=== PATIENT | male | born 1935 | race Hispanic/Latino ===

== ENCOUNTER 2017-05-19 20:24 | Inpatient (IN) | payer MEDICARE ==
[2017-05-19 22:40] LABS: BUN/Creatinine Ratio 17.77; Calcium 9.2 mg/dL (8.4-10.2); Chloride 98.4 mmol/L (98-107); Potassium 5.4 mmol/L (3.6-5.0)
[2017-05-19 22:56] LABS: Basophils % (Auto) 0.4 % (0.0-1.8); Hematocrit 42.9 % (35.5-45.6); Hemoglobin 14.1 gm/dl (11.8-15.2); Mean Corpuscular HGB Conc 33 % (32-34); Mean Corpuscular Hemoglobin 32 pg (28-32); Mean Corpuscular Volume 96 fl (84-94); Platelet Count 190 K/mm3 (140-440); Red Blood Count 4.45 M/mm3 (3.65-5.03); White Blood Count 9.3 K/mm3 (4.5-11.0)
[2017-05-19] MEDS ORDERED: KIONEX PO ONE (23:06)
[2017-05-19] MEDS ORDERED: NACL 0.9% 1000 ML 1,000 ML IV ONE (23:06)
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
[2017-05-20] MEDS ORDERED: TYLENOL PO PRN (01:24)
[2017-05-20] MEDS ORDERED: ZOFRAN IV PRN (01:25)
[2017-05-20] MEDS ORDERED: NACL 0.9% 1000 ML 1,000 ML IV SCH (02:00)
--- NOTE | 2017-05-20 02:22 | Admit Criteria Form ---
Admission Criteria Documentation: PSYCHIATRIC DISORDERS Clinical Indications for Inpatient Care (Place 'X' for any and all applicable criteria): Ongoing inpatient care may be needed for 1 or more of the following(1)(2)(3)(4)( 6)(7)(8): [ X]I. Danger to self or others not manageable at lower level of care. [ ]II. Grave disability (eg, inability to perform self care necessary at lower level of care) [ ]III. Agitation or inappropriate behavior interfering with care for primary condition (eg, attempting to discontinue lines or drains prematurely, unable to cooperate with respiratory care) [ ]IV. Severe disability or disorder indicated by ALL of the following: [ ]a) Severe behavioral health disorder-related symptoms or condition indicated by 1 or more of the following: [ ]i) Severe problem with cognition, memory, judgment, or impulse control [ ]ii) Severe clinical manifestations (eg, hallucinations, delusions, other acute psychotic symptoms, masood, extreme agitation or anxiety) [ ]b) Patient management at lower level of care is not feasible until acute intervention or modification is initiated. Extended stay beyond goal length of stay for the primary condition may be needed until ALLof the following are present(1)(2)(3)(4)7)19)(23): [ ]a) Danger to self or others is absent or manageable at lower level of care [ ]b) Behavior crisis management, including physical or chemical restraints, is required and is not available at a lower level of care. [ ]c) Behavioral symptoms (e.g., agitation, somnolence, inappropriate behavior) are present, and are not manageable at a lower level of care. [ ]d) Patient cannot understand follow-up treatment and crisis plan. [ ]e) Provider and supports are sufficiently available at lower level of care. [ ]f) Patient can participate (e.g., verify absence of plan for harm) and is in needed of monitoring. The original [facility] [employer] content created by [facility] has been revised. The portions of the content which have been revised are identified through the use of italic text or in bold, and [facility] has neither reviewed nor approved the modified material. All other unmodified content is copyright [facility] [employer]. Please see references footnoted in the original [facility] edition 2017 Admission Criteria Met: Yes
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
[2017-05-20 02:58] LABS: Urine Drugs of Abuse Note Disclamer
[2017-05-20 03:15] LABS: Bilirubin,Urine NEG (Negative); Blood,Urine NEG (Negative); Ketones,Urine NEG (Negative); Leukocyte Esterase,Urine TR (Negative); Mucus,Urine FEW /HPF; Nitrite,Urine NEG (Negative)
[2017-05-20 08:42] LABS: BUN/Creatinine Ratio 20.66; Calcium 8.3 mg/dL (8.4-10.2); Chloride 101.5 mmol/L (98-107); Potassium 4.5 mmol/L (3.6-5.0)
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
[2017-05-20] MEDS: HEPARIN SUB-Q SCH ×2 (09:31→21:52)
[2017-05-20] MEDS: NORVASC PO SCH (11:56)
[2017-05-20] MEDS ORDERED: PNEUMOVAX 23 IM ONE (12:00)
[2017-05-20] MEDS: HALDOL IM PRN ×2 (12:08→21:52)
--- NOTE | 2017-05-20 12:57 | Progress Note ---
Assessment and Plan Assessment and plan: Alzheimer's dementia with behavioral disturbances. Continue when necessary Haldol. Continue restraints as needed. Psychiatric consultation pending. Acute renal failure. Improved Etiology secondary to acute kidney injury likely related to vasomotor nephropathy/prerenal azotemia. Nephrology following. Follow BMP. Follow-up renal ultrasound and urine electrolytes. Follow-up SPEP and avoid potential nephrotoxins. Hypertension. Resume antihypertensives medications. Hyperkalemia. Resolved. Encephalopathy. As above. History Interval history: Patient is confused and combative. Hospitalist Physical - Constitutional Vitals: Temp Pulse Resp BP Pulse Ox 98.4 F 63 18 152/91 97 05/20/17 08:00 05/20/17 08:00 05/20/17 08:00 05/20/17 08:00 05/20/17 04:00 General appearance: Present: mild distress - EENT Eyes: Present: PERRL, EOM intact ENT: hearing intact, clear oral mucosa, dentition normal - Neck Neck: Present: supple, normal ROM - Respiratory Respiratory effort: normal Respiratory: bilateral: CTA - Cardiovascular Rhythm: regular Heart Sounds: Present: S1 & S2. Absent: gallop, rub - Extremities Extremities: no ischemia, No edema, Full ROM - Abdominal General gastrointestinal: soft, non-tender, non-distended, normal bowel sounds - Integumentary Integumentary: Present: clear, warm, dry - Neurologic Neurologic: CNII-XII intact, moves all extremities Results - Labs CBC & Chem 7: 05/19/17 22:02 05/20/17 07:30 Labs: Laboratory Last Values WBC 9.3 K/mm3 (4.5-11.0) 05/19/17 22:02 RBC 4.45 M/mm3 (3.65-5.03) 05/19/17 22:02 Hgb 14.1 gm/dl (11.8-15.2) 05/19/17 22:02 Hct 42.9 % (35.5-45.6) 05/19/17 22:02 MCV 96 fl (84-94) H 05/19/17 22:02 MCH 32 pg (28-32) 05/19/17 22:02 MCHC 33 % (32-34) 05/19/17 22:02 RDW 14.0 % (13.2-15.2) 05/19/17 22:02 Plt Count 190 K/mm3 (140-440) 05/19/17 22:02 Lymph % (Auto) 14.3 % (13.4-35.0) 05/19/17 22:02 [place] % (Auto) 12.8 % (0.0-7.3) H 05/19/17 22:02 Eos % (Auto) 0.0 % (0.0-4.3) 05/19/17 22:02 Baso % (Auto) 0.4 % (0.0-1.8) 05/19/17 22:02 Lymph # 1.3 K/mm3 (1.2-5.4) 05/19/17 22:02 [place] # 1.2 K/mm3 (0.0-0.8) H 05/19/17 22:02 Eos # 0.0 K/mm3 (0.0-0.4) 05/19/17 22:02 Baso # 0.0 K/mm3 (0.0-0.1) 05/19/17 22:02 Seg Neutrophils % 72.5 % (40.0-70.0) H 05/19/17 22:02 Seg Neutrophils # 6.7 K/mm3 (1.8-7.7) 05/19/17 22:02 Sodium 140 mmol/L (137-145) 05/20/17 07:30 Potassium 4.5 mmol/L (3.6-5.0) 05/20/17 07:30 Chloride 101.5 mmol/L (98-107) 05/20/17 07:30 Carbon Dioxide 26 mmol/L (22-30) 05/20/17 07:30 Anion Gap 17 mmol/L 05/20/17 07:30 BUN 31 mg/dL (9-20) H 05/20/17 07:30 Creatinine 1.5 mg/dL (0.8-1.5) 05/20/17 07:30 Estimated GFR 45 ml/min 05/20/17 07:30 BUN/Creatinine Ratio 20.66 % 05/20/17 07:30 Glucose 96 mg/dL (75-100) 05/20/17 07:30 Calcium 8.3 mg/dL (8.4-10.2) L 05/20/17 07:30 Urine Color Yellow (Yellow) 05/20/17 02:45 Urine Turbidity Clear (Clear) 05/20/17 02:45 Urine pH 6.0 (5.0-7.0) 05/20/17 02:45 Ur Specific [place] 1.012 (1.003-1.030) 05/20/17 02:45 Urine Protein 30 mg/dl mg/dL (Negative) 05/20/17 02:45 Urine Glucose (UA) Neg mg/dL (Negative) 05/20/17 02:45 Urine Ketones Neg mg/dL (Negative) 05/20/17 02:45 Urine Blood Neg (Negative) 05/20/17 02:45 Urine Nitrite Neg (Negative) 05/20/17 02:45 Urine Bilirubin Neg (Negative) 05/20/17 02:45 Urine Urobilinogen 2.0 mg/dL (<2.0) 05/20/17 02:45 Ur Leukocyte Esterase Tr (Negative) 05/20/17 02:45 Urine WBC (Auto) 7.0 /HPF (0.0-6.0) H 05/20/17 02:45 Urine RBC (Auto) 1.0 /HPF (0.0-6.0) 05/20/17 02:45 U Epithel Cells (Auto) < 1.0 /HPF (0-13.0) 05/20/17 02:45 Urine Mucus Few /HPF 05/20/17 02:45 Urine Opiates Screen Presumptive negative 05/20/17 02:45 Urine Methadone Screen Presumptive negative 05/20/17 02:45 Ur Barbiturates Screen Presumptive negative 05/20/17 02:45 Valproic Acid 52.7 ug/mL (50-100) 05/19/17 22:02 Ur Phencyclidine Scrn Presumptive negative 05/20/17 02:45 Ur Amphetamines Screen Presumptive negative 05/20/17 02:45 U Benzodiazepines Scrn Presumptive negative 05/20/17 02:45 Urine Cocaine Screen Presumptive negative 05/20/17 02:45 U Marijuana (THC) Screen Presumptive negative 05/20/17 02:45 Drugs of Abuse Note Disclamer 05/20/17 02:45 Plasma/Serum Alcohol < 0.01 gm% (0-0.07) 05/19/17 22:02
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
[2017-05-20] MEDS ORDERED: GEODON IM PRN (18:51)
[2017-05-20 20:16] LABS: Alanine Aminotransferase 19 units/L (7-56); Albumin 3.2 g/dL (3.9-5); Alkaline Phosphatase 71 units/L (35-129); Total Protein 6.4 g/dL (6.3-8.2)
[2017-05-20 21:19] LABS: Bilirubin,Direct < 0.2 mg/dL (0-0.2); Bilirubin,Indirect 0.1 mg/dL
[2017-05-21] MEDS: HALDOL IM PRN ×2 (01:33→18:30)
[2017-05-21] MEDS ORDERED: CATAPRES PO ONE (05:40)
[2017-05-21 05:59] LABS: Anion Gap 18 mmol/L; Blood Urea Nitrogen 24 mg/dL (9-20); Calcium 8.5 mg/dL (8.4-10.2); Carbon Dioxide 24 mmol/L (22-30); Chloride 100.4 mmol/L (98-107); Glucose 115 mg/dL (75-100); Sodium 138 mmol/L (137-145)
[2017-05-21] MEDS: NORVASC PO SCH (10:23)
[2017-05-21] MEDS: HEPARIN SUB-Q SCH ×2 (10:26→21:49)
--- NOTE | 2017-05-21 11:18 | Progress Note ---
Assessment and Plan Assessment and plan: Alzheimer's dementia with behavioral disturbances. Continue when necessary Haldol. Continue restraints as needed. Psychiatric consultation pending. Acute renal failure. Improved Etiology secondary to acute kidney injury likely related to vasomotor nephropathy/prerenal azotemia. Nephrology following. Follow BMP. Follow-up renal ultrasound and urine electrolytes. Follow-up SPEP and avoid potential nephrotoxins. Hypertension. Resume antihypertensives medications. Hyperkalemia. Resolved. Encephalopathy. As above. Disposition. Patient is medically stable for discharge to geriatric psych facility when bed is available. History Interval history: Patient is confused and combative. Hospitalist Physical - Constitutional Vitals: Temp Pulse Resp BP Pulse Ox 97.4 F L 0 L 18 0/0 96 05/21/17 05:33 05/21/17 05:33 05/21/17 05:33 05/21/17 05:33 05/21/17 05:33 General appearance: Present: no acute distress - EENT Eyes: Present: PERRL, EOM intact ENT: hearing intact, clear oral mucosa, dentition normal - Neck Neck: Present: supple, normal ROM - Respiratory Respiratory effort: normal Respiratory: bilateral: CTA - Cardiovascular Rhythm: regular Heart Sounds: Present: S1 & S2. Absent: gallop, rub - Extremities Extremities: no ischemia, No edema, Full ROM - Abdominal General gastrointestinal: soft, non-tender, non-distended, normal bowel sounds - Integumentary Integumentary: Present: clear, warm, dry - Neurologic Neurologic: CNII-XII intact, moves all extremities Results - Labs CBC & Chem 7: 05/19/17 22:02 05/21/17 04:31 Labs: Laboratory Last Values WBC 9.3 K/mm3 (4.5-11.0) 05/19/17 22:02 RBC 4.45 M/mm3 (3.65-5.03) 05/19/17 22:02 Hgb 14.1 gm/dl (11.8-15.2) 05/19/17 22:02 Hct 42.9 % (35.5-45.6) 05/19/17 22:02 MCV 96 fl (84-94) H 05/19/17 22:02 MCH 32 pg (28-32) 05/19/17 22:02 MCHC 33 % (32-34) 05/19/17 22:02 RDW 14.0 % (13.2-15.2) 05/19/17 22:02 Plt Count 190 K/mm3 (140-440) 05/19/17 22:02 Lymph % (Auto) 14.3 % (13.4-35.0) 05/19/17 22:02 [place] % (Auto) 12.8 % (0.0-7.3) H 05/19/17 22:02 Eos % (Auto) 0.0 % (0.0-4.3) 05/19/17 22:02 Baso % (Auto) 0.4 % (0.0-1.8) 05/19/17 22:02 Lymph # 1.3 K/mm3 (1.2-5.4) 05/19/17 22:02 [place] # 1.2 K/mm3 (0.0-0.8) H 05/19/17 22:02 Eos # 0.0 K/mm3 (0.0-0.4) 05/19/17 22:02 Baso # 0.0 K/mm3 (0.0-0.1) 05/19/17 22:02 Seg Neutrophils % 72.5 % (40.0-70.0) H 05/19/17 22:02 Seg Neutrophils # 6.7 K/mm3 (1.8-7.7) 05/19/17 22:02 Sodium 138 mmol/L (137-145) 05/21/17 04:31 Potassium 4.0 mmol/L (3.6-5.0) 05/21/17 04:31 Chloride 100.4 mmol/L (98-107) 05/21/17 04:31 Carbon Dioxide 24 mmol/L (22-30) 05/21/17 04:31 Anion Gap 18 mmol/L 05/21/17 04:31 BUN 24 mg/dL (9-20) H 05/21/17 04:31 Creatinine 1.0 mg/dL (0.8-1.5) 05/21/17 04:31 Estimated GFR > 60 ml/min 05/21/17 04:31 BUN/Creatinine Ratio 24.00 % 05/21/17 04:31 Glucose 115 mg/dL (75-100) H 05/21/17 04:31 Calcium 8.5 mg/dL (8.4-10.2) 05/21/17 04:31 Total Bilirubin 0.30 mg/dL (0.1-1.2) 05/20/17 13:52 Direct Bilirubin < 0.2 mg/dL (0-0.2) 05/20/17 13:52 Indirect Bilirubin 0.1 mg/dL 05/20/17 13:52 AST 35 units/L (5-40) 05/20/17 13:52 ALT 19 units/L (7-56) 05/20/17 13:52 Alkaline Phosphatase 71 units/L (35-129) 05/20/17 13:52 Total Protein 6.4 g/dL (6.3-8.2) 05/20/17 13:52 Albumin 3.2 g/dL (3.9-5) L 05/20/17 13:52 Albumin/Globulin Ratio 1.0 % 05/20/17 13:52 Urine Color Yellow (Yellow) 05/20/17 02:45 Urine Turbidity Clear (Clear) 05/20/17 02:45 Urine pH 6.0 (5.0-7.0) 05/20/17 02:45 Ur Specific [place] 1.012 (1.003-1.030) 05/20/17 02:45 Urine Protein 30 mg/dl mg/dL (Negative) 05/20/17 02:45 Urine Glucose (UA) Neg mg/dL (Negative) 05/20/17 02:45 Urine Ketones Neg mg/dL (Negative) 05/20/17 02:45 Urine Blood Neg (Negative) 05/20/17 02:45 Urine Nitrite Neg (Negative) 05/20/17 02:45 Urine Bilirubin Neg (Negative) 05/20/17 02:45 Urine Urobilinogen 2.0 mg/dL (<2.0) 05/20/17 02:45 Ur Leukocyte Esterase Tr (Negative) 05/20/17 02:45 Urine WBC (Auto) 7.0 /HPF (0.0-6.0) H 05/20/17 02:45 Urine RBC (Auto) 1.0 /HPF (0.0-6.0) 05/20/17 02:45 U Epithel Cells (Auto) < 1.0 /HPF (0-13.0) 05/20/17 02:45 Urine Mucus Few /HPF 07/12/17 02:45 Urine Opiates Screen Presumptive negative 05/20/17 02:45 Urine Methadone Screen Presumptive negative 05/20/17 02:45 Ur Barbiturates Screen Presumptive negative 05/20/17 02:45 Valproic Acid 52.7 ug/mL (50-100) 05/19/17 22:02 Ur Phencyclidine Scrn Presumptive negative 05/20/17 02:45 Ur Amphetamines Screen Presumptive negative 05/20/17 02:45 U Benzodiazepines Scrn Presumptive negative 05/20/17 02:45 Urine Cocaine Screen Presumptive negative 05/20/17 02:45 U Marijuana (THC) Screen Presumptive negative 05/20/17 02:45 Drugs of Abuse Note Disclamer 05/20/17 02:45 Plasma/Serum Alcohol < 0.01 gm% (0-0.07) 05/19/17 22:02 Hepatitis A IgM Ab Non-reactive (NonReactive) 05/20/17 13:52 Hep Bs Antigen Non-reactive (Negative) 05/20/17 13:52 Hep B Core IgM Ab Non-reactive (NonReactive) 05/20/17 13:52 Hepatitis C Antibody Non-reactive (NonReactive) 05/20/17 13:52
[2017-05-21] MEDS ORDERED: GEODON IM PRN (11:23)
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
--- NOTE | 2017-05-21 13:19 | Progress Note ---
Assessment and Plan Impression: * Acute kidney injury - likely related to prerenal azotemia * Dementia * Hypertension * Proteinuria * uti Plan: * Renal function has improved, cr is normal today * on low dose Amlodipine * po abx for uti * Avoid potential nephrotoxins * Needs psych and neuro evaluation * Encourage po hydration; gentle IVF * will sign off Subjective Date of service: 05/21/17 Principal diagnosis: adela Interval history: resting in bed, no acute events Objective - Exam Narrative Exam: General appearance: well-developed, well-nourished, other (NAD; awake; alert; nonverbal) EENT: ATNC Respiratory: Clear to Ascultation Heart: regular, S1S2 Gastrointestinal: Present: normal. Absent: tenderness, distended Integumentary: no rash Neurologic: other (alert) Musculoskeletal: Present: other (no edema) Psychiatric: cooperative F - Vital Signs Vital signs: Vital Signs - 12hr 05/21/17 05/21/17 05:33 10:00 Temperature 97.4 F L Pulse Rate [ 83 Left Radial] Pulse Rate [ 0 L Right] Respiratory 18 Rate Blood Pressure 190/122 [Left Radial Artery] Blood Pressure 0/0 [Right Arm] O2 Sat by Pulse 96 97 Oximetry - Lab 05/19/17 22:02 05/21/17 04:31 Most recent lab results Calcium 8.5 mg/dL (8.4-10.2) 05/21/17 04:31
[2017-05-21] MEDS: LEVAQUIN PO SCH (15:46)
[2017-05-21 20:28] LABS: Alanine Aminotransferase 14 units/L (7-56); Albumin 3.1 g/dL (3.9-5); Albumin/Globulin Ratio 1.2 %; Alkaline Phosphatase 77 units/L (35-129); Total Protein 5.6 g/dL (6.3-8.2)
[2017-05-21 20:30] LABS: Bilirubin,Direct < 0.2 mg/dL (0-0.2); Bilirubin,Indirect 0.3 mg/dL
[2017-05-22 08:21] LABS: Anion Gap 18 mmol/L; BUN/Creatinine Ratio 21.11; Blood Urea Nitrogen 19 mg/dL (9-20); Carbon Dioxide 25 mmol/L (22-30); Chloride 100.9 mmol/L (98-107); Glucose 82 mg/dL (75-100); Potassium 4.3 mmol/L (3.6-5.0); Sodium 140 mmol/L (137-145)
[2017-05-22] MEDS: NORVASC PO SCH (09:13)
[2017-05-22] MEDS: LEVAQUIN PO SCH (09:13)
[2017-05-22] MEDS: HEPARIN SUB-Q SCH ×2 (09:14→23:17)
[2017-05-22] MEDS ORDERED: NORVASC PO ONE (12:00)
--- NOTE | 2017-05-22 12:20 | Progress Note ---
Assessment and Plan Assessment and plan: Alzheimer's dementia with behavioral disturbances. Continue when necessary Haldol. Continue restraints as needed. Psychiatric consultation pending. Acute renal failure. Improved Etiology secondary to acute kidney injury likely related to vasomotor nephropathy/prerenal azotemia. Nephrology following. Follow BMP. Follow-up renal ultrasound and urine electrolytes. Follow-up SPEP and avoid potential nephrotoxins. Accelerated Hypertension. Norvasc increased to 10 mg daily Hyperkalemia. Resolved. Encephalopathy. As above. Disposition. Patient is medically stable for discharge to geriatric psych facility when bed is available. - Patient Problems (1) Alzheimer's dementia with behavioral disturbance Current Visit: Yes Status: Acute Qualifiers: Alzheimer's disease onset: A History Interval history: Patient is confused and combative. Hospitalist Physical - Constitutional Vitals: Temp Pulse Resp BP Pulse Ox 98.9 F 108 H 18 182/106 96 05/22/17 10:00 05/22/17 11:35 05/22/17 10:00 05/22/17 11:35 05/22/17 10:00 General appearance: Present: no acute distress, well-nourished - EENT Eyes: Present: PERRL, EOM intact ENT: hearing intact, clear oral mucosa, dentition normal - Neck Neck: Present: supple, normal ROM - Respiratory Respiratory effort: normal Respiratory: bilateral: CTA - Cardiovascular Rhythm: regular Heart Sounds: Present: S1 & S2. Absent: gallop, rub - Extremities Extremities: no ischemia, No edema, Full ROM - Abdominal General gastrointestinal: soft, non-tender, non-distended, normal bowel sounds - Integumentary Integumentary: Present: clear, warm, dry - Neurologic Neurologic: CNII-XII intact, moves all extremities Results - Labs CBC & Chem 7: 05/19/17 22:02 05/22/17 07:33 Labs: Laboratory Last Values WBC 9.3 K/mm3 (4.5-11.0) 05/19/17 22:02 RBC 4.45 M/mm3 (3.65-5.03) 05/19/17 22:02 Hgb 14.1 gm/dl (11.8-15.2) 05/19/17 22:02 Hct 42.9 % (35.5-45.6) 05/19/17 22:02 MCV 96 fl (84-94) H 05/19/17 22:02 MCH 32 pg (28-32) 05/19/17 22:02 MCHC 33 % (32-34) 05/19/17 22:02 RDW 14.0 % (13.2-15.2) 05/19/17 22:02 Plt Count 190 K/mm3 (140-440) 05/19/17 22:02 Lymph % (Auto) 14.3 % (13.4-35.0) 05/19/17 22:02 [place] % (Auto) 12.8 % (0.0-7.3) H 05/19/17 22:02 Eos % (Auto) 0.0 % (0.0-4.3) 05/19/17 22:02 Baso % (Auto) 0.4 % (0.0-1.8) 05/19/17 22:02 Lymph # 1.3 K/mm3 (1.2-5.4) 05/19/17 22:02 [place] # 1.2 K/mm3 (0.0-0.8) H 05/19/17 22:02 Eos # 0.0 K/mm3 (0.0-0.4) 05/19/17 22:02 Baso # 0.0 K/mm3 (0.0-0.1) 05/19/17 22:02 Seg Neutrophils % 72.5 % (40.0-70.0) H 05/19/17 22:02 Seg Neutrophils # 6.7 K/mm3 (1.8-7.7) 05/19/17 22:02 Sodium 140 mmol/L (137-145) 05/22/17 07:33 Potassium 4.3 mmol/L (3.6-5.0) 05/22/17 07:33 Chloride 100.9 mmol/L (98-107) 05/22/17 07:33 Carbon Dioxide 25 mmol/L (22-30) 05/22/17 07:33 Anion Gap 18 mmol/L 05/22/17 07:33 BUN 19 mg/dL (9-20) 05/22/17 07:33 Creatinine 0.9 mg/dL (0.8-1.5) 05/22/17 07:33 Estimated GFR > 60 ml/min 05/22/17 07:33 BUN/Creatinine Ratio 21.11 % 05/22/17 07:33 Glucose 82 mg/dL (75-100) 05/22/17 07:33 Calcium 9.0 mg/dL (8.4-10.2) 05/22/17 07:33 Total Bilirubin 0.50 mg/dL (0.1-1.2) 05/21/17 17:54 Direct Bilirubin < 0.2 mg/dL (0-0.2) 05/21/17 17:54 Indirect Bilirubin 0.3 mg/dL 05/21/17 17:54 AST 34 units/L (5-40) 05/21/17 17:54 ALT 14 units/L (7-56) 05/21/17 17:54 Alkaline Phosphatase 77 units/L (35-129) 05/21/17 17:54 Total Protein 5.6 g/dL (6.3-8.2) L 05/21/17 17:54 Albumin 3.1 g/dL (3.9-5) L 05/21/17 17:54 Albumin/Globulin Ratio 1.2 % 05/21/17 17:54 Urine Color Yellow (Yellow) 05/20/17 02:45 Urine Turbidity Clear (Clear) 05/20/17 02:45 Urine pH 6.0 (5.0-7.0) 05/20/17 02:45 Ur Specific [place] 1.012 (1.003-1.030) 05/20/17 02:45 Urine Protein 30 mg/dl mg/dL (Negative) 05/20/17 02:45 Urine Glucose (UA) Neg mg/dL (Negative) 05/20/17 02:45 Urine Ketones Neg mg/dL (Negative) 05/20/17 02:45 Urine Blood Neg (Negative) 05/20/17 02:45 Urine Nitrite Neg (Negative) 05/20/17 02:45 Urine Bilirubin Neg (Negative) 05/20/17 02:45 Urine Urobilinogen 2.0 mg/dL (<2.0) 05/20/17 02:45 Ur Leukocyte Esterase Tr (Negative) 05/20/17 02:45 Urine WBC (Auto) 7.0 /HPF (0.0-6.0) H 05/20/17 02:45 Urine RBC (Auto) 1.0 /HPF (0.0-6.0) 05/20/17 02:45 U Epithel Cells (Auto) < 1.0 /HPF (0-13.0) 05/20/17 02:45 Urine Mucus Few /HPF 05/20/17 02:45 Urine Opiates Screen Presumptive negative 05/20/17 02:45 Urine Methadone Screen Presumptive negative 05/20/17 02:45 Ur Barbiturates Screen Presumptive negative 05/20/17 02:45 Valproic Acid 11.3 ug/mL (50-100) L 05/21/17 13:35 Ur Phencyclidine Scrn Presumptive negative 05/20/17 02:45 Ur Amphetamines Screen Presumptive negative 05/20/17 02:45 U Benzodiazepines Scrn Presumptive negative 05/20/17 02:45 Urine Cocaine Screen Presumptive negative 05/20/17 02:45 U Marijuana (THC) Screen Presumptive negative 05/20/17 02:45 Drugs of Abuse Note Disclamer 05/20/17 02:45 Plasma/Serum Alcohol < 0.01 gm% (0-0.07) 05/19/17 22:02 Hepatitis A IgM Ab Non-reactive (NonReactive) 05/20/17 13:52 Hep Bs Antigen Non-reactive (Negative) 05/20/17 13:52 Hep B Core IgM Ab Non-reactive (NonReactive) 05/20/17 13:52 Hepatitis C Antibody Non-reactive (NonReactive) 05/20/17 13:52
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
[2017-05-22] MEDS ORDERED: APRESOLINE IV ONE (18:36)
[2017-05-23 05:39] LABS: Anion Gap 21 mmol/L; Blood Urea Nitrogen 18 mg/dL (9-20); Calcium 9.2 mg/dL (8.4-10.2); Carbon Dioxide 22 mmol/L (22-30); Glucose 104 mg/dL (75-100); Potassium 4.6 mmol/L (3.6-5.0); Sodium 141 mmol/L (137-145)
--- NOTE | 2017-05-23 10:53 | Progress Note ---
Assessment and Plan Assessment and plan: Alzheimer's dementia with behavioral disturbances. Continue when necessary Haldol. Continue restraints as needed. Psychiatric following. Acute renal failure. Resolved. Nephrology following. Accelerated Hypertension. Add labetalol twice a day. Hyperkalemia. Resolved. Encephalopathy. As above. Disposition. Patient is medically stable for discharge to geriatric psych facility when bed is available. - Patient Problems (1) Alzheimer's dementia with behavioral disturbance Current Visit: Yes Status: Acute Qualifiers: Alzheimer's disease onset: A History Interval history: Patient is currently calm and eating breakfast Hospitalist Physical - Constitutional Vitals: Temp Pulse Resp BP Pulse Ox 98.6 F 113 H 18 145/97 96 05/22/17 22:00 05/22/17 22:00 05/22/17 22:00 05/22/17 22:00 05/22/17 10:00 General appearance: Present: no acute distress, well-nourished - EENT Eyes: Present: PERRL, EOM intact ENT: hearing intact, clear oral mucosa, dentition normal - Neck Neck: Present: supple, normal ROM - Respiratory Respiratory effort: normal Respiratory: bilateral: CTA - Cardiovascular Rhythm: regular Heart Sounds: Present: S1 & S2. Absent: gallop, rub - Extremities Extremities: no ischemia, No edema, Full ROM - Abdominal General gastrointestinal: soft, non-tender, non-distended, normal bowel sounds - Integumentary Integumentary: Present: clear, warm, dry - Neurologic Neurologic: CNII-XII intact, moves all extremities Results - Labs CBC & Chem 7: 05/19/17 22:02 05/23/17 04:33 Labs: Laboratory Last Values WBC 9.3 K/mm3 (4.5-11.0) 05/19/17 22:02 RBC 4.45 M/mm3 (3.65-5.03) 05/19/17 22:02 Hgb 14.1 gm/dl (11.8-15.2) 05/19/17 22:02 Hct 42.9 % (35.5-45.6) 05/19/17 22:02 MCV 96 fl (84-94) H 05/19/17 22:02 MCH 32 pg (28-32) 05/19/17 22:02 MCHC 33 % (32-34) 05/19/17 22:02 RDW 14.0 % (13.2-15.2) 05/19/17 22:02 Plt Count 190 K/mm3 (140-440) 05/19/17 22:02 Lymph % (Auto) 14.3 % (13.4-35.0) 05/19/17 22:02 [place] % (Auto) 12.8 % (0.0-7.3) H 05/19/17 22:02 Eos % (Auto) 0.0 % (0.0-4.3) 05/19/17 22:02 Baso % (Auto) 0.4 % (0.0-1.8) 05/19/17 22:02 Lymph # 1.3 K/mm3 (1.2-5.4) 05/19/17 22:02 [place] # 1.2 K/mm3 (0.0-0.8) H 05/19/17 22:02 Eos # 0.0 K/mm3 (0.0-0.4) 05/19/17 22:02 Baso # 0.0 K/mm3 (0.0-0.1) 05/19/17 22:02 Seg Neutrophils % 72.5 % (40.0-70.0) H 05/19/17 22:02 Seg Neutrophils # 6.7 K/mm3 (1.8-7.7) 05/19/17 22:02 Sodium 141 mmol/L (137-145) 05/23/17 04:33 Potassium 4.6 mmol/L (3.6-5.0) 05/23/17 04:33 Chloride 103.0 mmol/L (98-107) 05/23/17 04:33 Carbon Dioxide 22 mmol/L (22-30) 05/23/17 04:33 Anion Gap 21 mmol/L 05/23/17 04:33 BUN 18 mg/dL (9-20) 05/23/17 04:33 Creatinine 0.9 mg/dL (0.8-1.5) 05/23/17 04:33 Estimated GFR > 60 ml/min 05/23/17 04:33 BUN/Creatinine Ratio 20.00 % 05/23/17 04:33 Glucose 104 mg/dL (75-100) H 05/23/17 04:33 Calcium 9.2 mg/dL (8.4-10.2) 05/23/17 04:33 Total Bilirubin 0.50 mg/dL (0.1-1.2) 05/21/17 17:54 Direct Bilirubin < 0.2 mg/dL (0-0.2) 05/21/17 17:54 Indirect Bilirubin 0.3 mg/dL 05/21/17 17:54 AST 34 units/L (5-40) 05/21/17 17:54 ALT 14 units/L (7-56) 05/21/17 17:54 Alkaline Phosphatase 77 units/L (35-129) 05/21/17 17:54 Total Protein 5.6 g/dL (6.3-8.2) L 05/21/17 17:54 Albumin 3.1 g/dL (3.9-5) L 05/21/17 17:54 Albumin/Globulin Ratio 1.2 % 05/21/17 17:54 Urine Color Yellow (Yellow) 05/20/17 02:45 Urine Turbidity Clear (Clear) 05/20/17 02:45 Urine pH 6.0 (5.0-7.0) 05/20/17 02:45 Ur Specific [place] 1.012 (1.003-1.030) 05/20/17 02:45 Urine Protein 30 mg/dl mg/dL (Negative) 05/20/17 02:45 Urine Glucose (UA) Neg mg/dL (Negative) 05/20/17 02:45 Urine Ketones Neg mg/dL (Negative) 05/20/17 02:45 Urine Blood Neg (Negative) 05/20/17 02:45 Urine Nitrite Neg (Negative) 05/20/17 02:45 Urine Bilirubin Neg (Negative) 05/20/17 02:45 Urine Urobilinogen 2.0 mg/dL (<2.0) 05/20/17 02:45 Ur Leukocyte Esterase Tr (Negative) 05/20/17 02:45 Urine WBC (Auto) 7.0 /HPF (0.0-6.0) H 05/20/17 02:45 Urine RBC (Auto) 1.0 /HPF (0.0-6.0) 05/20/17 02:45 U Epithel Cells (Auto) < 1.0 /HPF (0-13.0) 05/20/17 02:45 Urine Mucus Few /HPF 05/20/17 02:45 Urine Opiates Screen Presumptive negative 05/20/17 02:45 Urine Methadone Screen Presumptive negative 05/20/17 02:45 Ur Barbiturates Screen Presumptive negative 05/20/17 02:45 Valproic Acid 11.3 ug/mL (50-100) L 05/21/17 13:35 Ur Phencyclidine Scrn Presumptive negative 05/20/17 02:45 Ur Amphetamines Screen Presumptive negative 05/20/17 02:45 U Benzodiazepines Scrn Presumptive negative 05/20/17 02:45 Urine Cocaine Screen Presumptive negative 05/20/17 02:45 U Marijuana (THC) Screen Presumptive negative 05/20/17 02:45 Drugs of Abuse Note Disclamer 05/20/17 02:45 Plasma/Serum Alcohol < 0.01 gm% (0-0.07) 05/19/17 22:02 Hepatitis A IgM Ab Non-reactive (NonReactive) 05/20/17 13:52 Hep Bs Antigen Non-reactive (Negative) 05/20/17 13:52 Hep B Core IgM Ab Non-reactive (NonReactive) 05/20/17 13:52 Hepatitis C Antibody Non-reactive (NonReactive) 05/20/17 13:52
[2017-05-23] MEDS: LEVAQUIN PO SCH (10:57)
[2017-05-23] MEDS: HEPARIN SUB-Q SCH (10:57)
[2017-05-23] MEDS: NORVASC PO SCH (10:58)
--- NOTE | 2017-05-23 19:51 | Progress Note ---
Subjective - Reason for Consult Consult date: 05/23/17 Reason for consult: follow up - Chief Complaint Chief complaint: "Hello" 84-year-old male with a past medical history atrial fibrillation and dementia with hallucinations presented to the hospital after a violent outburst at the assisted-living facility. Today patient is calm during assessment. He would answer some questions when asked. Also, he was observed eating his lunch. Per the staff, no behavioral disturbance overnight. No gestures of SI/HI's and AVH' s. Mental Status Exam - Vital signs Last Vital Signs Temp 98.5 F 05/23/17 10:00 Pulse 78 05/23/17 10:58 Resp 18 05/23/17 10:00 BP 131/77 05/23/17 10:58 Pulse Ox 97 05/23/17 10:00 Assessment and Plan MSE: Appearance: calm, minimally cooperative Behavior: poor eye contact Speech: regular rate and tone Mood: "okay" Affect: flat Thought Process: unable to assess Thought Content: no gestures SI/HI's and AVH's Motor Activity: lying in bed Cognition: A/Ox 2 Insight: limited Judgment: limited Impression: Dementia with behavioral disturbance, likely has underlying mood disorder, which may be longstanding. Today patient is calm during assessment. Patient is out of restraints. Patient is medically cleared. Recommendation/Plan: Continue Haldol 2.5 mg IM q4 hours PRN for physical agitation. His son reported recent positive response to Depakote. LFTs are normal and depakote will be started. Patient pending possible placement to [facility]. 1. Frequently reorient patient and involve him/her in their care (simple explanations of procedures, tests, medications). 2. Lights on and shades open during daytime hours. 3. Try to avoid unnecessary interruptions to sleep during nighttime hours. 4. Obtain glasses, hearing aids from home if patient uses these at baseline. 5. Avoid medications that may exacerbate delirium (especially narcotics, benzodiazepines, barbiturates, ambien, lunesta, and medications with excessive anticholinergic properties). 6. Haldol 2.5 mg IM Q4hrs for agitation. 7. D/C restraints when indicated.
[2017-05-24] MEDS: HEPARIN SUB-Q SCH ×3 (00:35→22:16)
[2017-05-24] MEDS: NORMODYNE PO SCH ×3 (00:35→22:14)
[2017-05-24 05:13] LABS: Albumin 3.7 g/dL (3.8-4.8); Gamma Globulin 1.2 g/dL (0.8-1.7)
[2017-05-24] MEDS: HALDOL IM PRN (05:50)
[2017-05-24 08:22] LABS: BUN/Creatinine Ratio 23.33; Calcium 8.6 mg/dL (8.4-10.2); Chloride 100.4 mmol/L (98-107); Potassium 4.3 mmol/L (3.6-5.0)
[2017-05-24] MEDS: NORVASC PO SCH (10:28)
--- NOTE | 2017-05-24 12:27 | Progress Note ---
Assessment and Plan Assessment and plan: Alzheimer's dementia with behavioral disturbances. Continue when necessary Haldol. Continue restraints as needed. Psychiatric following. Depakote added to the regimen. Acute renal failure. Resolved. Nephrology following. Accelerated Hypertension. Cont. labetalol twice a day. Hyperkalemia. Resolved. Encephalopathy. As above. Disposition. Patient is medically stable for discharge to geriatric psych facility when bed is available. - Patient Problems (1) Alzheimer's dementia with behavioral disturbance Current Visit: Yes Status: Acute Qualifiers: Alzheimer's disease onset: A History Interval history: No new issues overnight. Hospitalist Physical - Constitutional Vitals: Temp Pulse Resp BP Pulse Ox 99.1 F 69 18 118/61 100 05/24/17 10:00 05/24/17 10:30 05/24/17 10:00 05/24/17 10:30 05/24/17 10:00 General appearance: Present: no acute distress, well-nourished - EENT Eyes: Present: PERRL, EOM intact ENT: hearing intact, clear oral mucosa, dentition normal - Neck Neck: Present: supple, normal ROM - Respiratory Respiratory effort: normal Respiratory: bilateral: CTA - Cardiovascular Rhythm: regular Heart Sounds: Present: S1 & S2. Absent: gallop, rub - Extremities Extremities: no ischemia, No edema, Full ROM - Abdominal General gastrointestinal: soft, non-tender, non-distended, normal bowel sounds - Integumentary Integumentary: Present: clear, warm, dry - Neurologic Neurologic: CNII-XII intact, moves all extremities Results - Labs CBC & Chem 7: 05/19/17 22:02 05/24/17 07:29 Labs: Laboratory Last Values WBC 9.3 K/mm3 (4.5-11.0) 05/19/17 22:02 RBC 4.45 M/mm3 (3.65-5.03) 05/19/17 22:02 Hgb 14.1 gm/dl (11.8-15.2) 05/19/17 22:02 Hct 42.9 % (35.5-45.6) 05/19/17 22:02 MCV 96 fl (84-94) H 05/19/17 22:02 MCH 32 pg (28-32) 05/19/17 22:02 MCHC 33 % (32-34) 05/19/17 22:02 RDW 14.0 % (13.2-15.2) 05/19/17 22:02 Plt Count 190 K/mm3 (140-440) 05/19/17 22:02 Lymph % (Auto) 14.3 % (13.4-35.0) 05/19/17 22:02 [place] % (Auto) 12.8 % (0.0-7.3) H 05/19/17 22:02 Eos % (Auto) 0.0 % (0.0-4.3) 05/19/17 22:02 Baso % (Auto) 0.4 % (0.0-1.8) 05/19/17 22:02 Lymph # 1.3 K/mm3 (1.2-5.4) 05/19/17 22:02 [place] # 1.2 K/mm3 (0.0-0.8) H 05/19/17 22:02 Eos # 0.0 K/mm3 (0.0-0.4) 05/19/17 22:02 Baso # 0.0 K/mm3 (0.0-0.1) 05/19/17 22:02 Seg Neutrophils % 72.5 % (40.0-70.0) H 05/19/17 22:02 Seg Neutrophils # 6.7 K/mm3 (1.8-7.7) 05/19/17 22:02 Sodium 136 mmol/L (137-145) L 05/24/17 07:29 Potassium 4.3 mmol/L (3.6-5.0) 05/24/17 07:29 Chloride 100.4 mmol/L (98-107) 05/24/17 07:29 Carbon Dioxide 20 mmol/L (22-30) L 05/24/17 07:29 Anion Gap 20 mmol/L 05/24/17 07:29 BUN 28 mg/dL (9-20) H 05/24/17 07:29 Creatinine 1.2 mg/dL (0.8-1.5) 05/24/17 07:29 Estimated GFR 58 ml/min 05/24/17 07:29 BUN/Creatinine Ratio 23.33 % 05/24/17 07:29 Glucose 111 mg/dL (75-100) H 05/24/17 07:29 Calcium 8.6 mg/dL (8.4-10.2) 05/24/17 07:29 Total Bilirubin 0.50 mg/dL (0.1-1.2) 05/21/17 17:54 Direct Bilirubin < 0.2 mg/dL (0-0.2) 05/21/17 17:54 Indirect Bilirubin 0.3 mg/dL 05/21/17 17:54 AST 34 units/L (5-40) 05/21/17 17:54 ALT 14 units/L (7-56) 05/21/17 17:54 Alkaline Phosphatase 77 units/L (35-129) 05/21/17 17:54 Serum Total Protein 6.6 g/dL (6.1-8.1) 05/20/17 13:52 Total Protein 5.6 g/dL (6.3-8.2) L 05/21/17 17:54 Albumin 3.1 g/dL (3.9-5) L 05/21/17 17:54 Albumin/Globulin Ratio 1.2 % 05/21/17 17:54 Klbuu-7-Qhyyzknln 0.3 g/dL (0.2-0.3) 05/20/17 13:52 Oisdj-7-Xjazkfmcc 0.7 g/dL (0.5-0.9) 05/20/17 13:52 Beta Globulins 0.4 g/dL (0.2-0.5) 05/20/17 13:52 Gamma Globulins 1.2 g/dL (0.8-1.7) 05/20/17 13:52 Abnorm Protein Band 1 see below 05/20/17 13:52 PEP Interpretation see below H 05/20/17 13:52 Urine Color Yellow (Yellow) 05/20/17 02:45 Urine Turbidity Clear (Clear) 05/20/17 02:45 Urine pH 6.0 (5.0-7.0) 05/20/17 02:45 Ur Specific [place] 1.012 (1.003-1.030) 05/20/17 02:45 Urine Protein 30 mg/dl mg/dL (Negative) 05/20/17 02:45 Urine Glucose (UA) Neg mg/dL (Negative) 05/20/17 02:45 Urine Ketones Neg mg/dL (Negative) 05/20/17 02:45 Urine Blood Neg (Negative) 05/20/17 02:45 Urine Nitrite Neg (Negative) 05/20/17 02:45 Urine Bilirubin Neg (Negative) 05/20/17 02:45 Urine Urobilinogen 2.0 mg/dL (<2.0) 05/20/17 02:45 Ur Leukocyte Esterase Tr (Negative) 05/20/17 02:45 Urine WBC (Auto) 7.0 /HPF (0.0-6.0) H 05/20/17 02:45 Urine RBC (Auto) 1.0 /HPF (0.0-6.0) 05/20/17 02:45 U Epithel Cells (Auto) < 1.0 /HPF (0-13.0) 05/20/17 02:45 Urine Mucus Few /HPF 05/20/17 02:45 Urine Opiates Screen Presumptive negative 05/20/17 02:45 Urine Methadone Screen Presumptive negative 05/20/17 02:45 Ur Barbiturates Screen Presumptive negative 05/20/17 02:45 Valproic Acid 11.3 ug/mL (50-100) L 05/21/17 13:35 Ur Phencyclidine Scrn Presumptive negative 05/20/17 02:45 Ur Amphetamines Screen Presumptive negative 05/20/17 02:45 U Benzodiazepines Scrn Presumptive negative 05/20/17 02:45 Urine Cocaine Screen Presumptive negative 05/20/17 02:45 U Marijuana (THC) Screen Presumptive negative 05/20/17 02:45 Drugs of Abuse Note Disclamer 05/20/17 02:45 Plasma/Serum Alcohol < 0.01 gm% (0-0.07) 05/19/17 22:02 Hepatitis A IgM Ab Non-reactive (NonReactive) 05/20/17 13:52 Hep Bs Antigen Non-reactive (Negative) 05/20/17 13:52 Hep B Core IgM Ab Non-reactive (NonReactive) 05/20/17 13:52 Hepatitis C Antibody Non-reactive (NonReactive) 05/20/17 13:52
--- NOTE | 2017-05-24 19:46 | Progress Note ---
Subjective - Reason for Consult Consult date: 05/24/17 Reason for consult: follow up - Chief Complaint Chief complaint: sleeping 84-year-old male with a past medical history atrial fibrillation and dementia with hallucinations presented to the hospital after a violent outburst at the assisted-living facility.Staff report he has had a bad day. He was reported to have his head down and would not eat. Staff had to prompt him to swallow. He was asleep today when seen. Mental Status Exam - Vital signs Last Vital Signs Temp 99.1 F 05/24/17 10:00 Pulse 69 05/24/17 10:30 Resp 18 05/24/17 10:00 BP 118/61 05/24/17 10:30 Pulse Ox 96 05/24/17 10:00 Assessment and Plan MSE: Appearance: resting unable to obtain thought process, content, mood or perceptual disturbances Motor Activity: lying in bed Cognition: unknown Impression: Dementia with behavioral disturbance, likely has underlying mood disorder, which may be longstanding. Today patient is calm during assessment. Patient is out of restraints. Patient is medically cleared. Recommendation/Plan: Continue Haldol 2.5 mg IM q4 hours PRN for physical agitation. His son reported recent positive response to Depakote. LFTs are normal and depakote was restarted. Patient pending possible placement to [facility], but his son is thinking he can return to the assisted living facility. 1. Frequently reorient patient and involve him/her in their care (simple explanations of procedures, tests, medications). 2. Lights on and shades open during daytime hours. 3. Try to avoid unnecessary interruptions to sleep during nighttime hours. 4. Obtain glasses, hearing aids from home if patient uses these at baseline. 5. Avoid medications that may exacerbate delirium (especially narcotics, benzodiazepines, barbiturates, ambien, lunesta, and medications with excessive anticholinergic properties). 6. Haldol 2.5 mg IM Q4hrs for agitation. 7. D/C restraints when indicated.
[2017-05-25 07:56] LABS: Anion Gap 18 mmol/L; BUN/Creatinine Ratio 21.81; Blood Urea Nitrogen 24 mg/dL (9-20); Calcium 8.9 mg/dL (8.4-10.2); Carbon Dioxide 26 mmol/L (22-30); Chloride 101.3 mmol/L (98-107); Glucose 90 mg/dL (75-100); Potassium 4.6 mmol/L (3.6-5.0); Sodium 141 mmol/L (137-145)
[2017-05-25] MEDS: NORMODYNE PO SCH ×2 (09:00→22:05)
[2017-05-25] MEDS: NORVASC PO SCH (09:00)
[2017-05-25] MEDS: HEPARIN SUB-Q SCH ×2 (10:49→22:05)
--- NOTE | 2017-05-25 11:41 | Progress Note ---
Assessment and Plan Assessment and plan: Alzheimer's dementia with behavioral disturbances. Continue when necessary Haldol. Continue restraints as needed. Psychiatric following. Depakote added to the regimen. Acute renal failure. Resolved. Nephrology following. Accelerated Hypertension. Cont. labetalol twice a day. Hyperkalemia. Resolved. Encephalopathy. As above. Disposition. Patient is medically stable for discharge to geriatric psych facility when bed is available. - Patient Problems (1) Alzheimer's dementia with behavioral disturbance Current Visit: Yes Status: Acute Qualifiers: Alzheimer's disease onset: A History Interval history: No new issues overnight. Hospitalist Physical - Constitutional Vitals: Temp Pulse Resp BP Pulse Ox 97.6 F 64 20 103/79 97 05/25/17 09:36 05/25/17 09:36 05/25/17 09:36 05/25/17 09:36 05/24/17 22:00 General appearance: Present: no acute distress, well-nourished - EENT Eyes: Present: PERRL, EOM intact ENT: hearing intact, clear oral mucosa, dentition normal - Neck Neck: Present: supple, normal ROM - Respiratory Respiratory effort: normal Respiratory: bilateral: CTA - Cardiovascular Rhythm: regular Heart Sounds: Present: S1 & S2. Absent: gallop, rub - Extremities Extremities: no ischemia, No edema, Full ROM - Abdominal General gastrointestinal: soft, non-tender, non-distended, normal bowel sounds - Integumentary Integumentary: Present: clear, warm, dry - Neurologic Neurologic: CNII-XII intact, moves all extremities Results - Labs CBC & Chem 7: 05/19/17 22:02 05/25/17 07:26 Labs: Laboratory Last Values WBC 9.3 K/mm3 (4.5-11.0) 05/19/17 22:02 RBC 4.45 M/mm3 (3.65-5.03) 05/19/17 22:02 Hgb 14.1 gm/dl (11.8-15.2) 05/19/17 22:02 Hct 42.9 % (35.5-45.6) 05/19/17 22:02 MCV 96 fl (84-94) H 05/19/17 22:02 MCH 32 pg (28-32) 05/19/17 22:02 MCHC 33 % (32-34) 05/19/17 22:02 RDW 14.0 % (13.2-15.2) 05/19/17 22:02 Plt Count 190 K/mm3 (140-440) 05/19/17 22:02 Lymph % (Auto) 14.3 % (13.4-35.0) 05/19/17 22:02 [place] % (Auto) 12.8 % (0.0-7.3) H 05/19/17 22:02 Eos % (Auto) 0.0 % (0.0-4.3) 05/19/17 22:02 Baso % (Auto) 0.4 % (0.0-1.8) 05/19/17 22:02 Lymph # 1.3 K/mm3 (1.2-5.4) 05/19/17 22:02 [place] # 1.2 K/mm3 (0.0-0.8) H 05/19/17 22:02 Eos # 0.0 K/mm3 (0.0-0.4) 05/19/17 22:02 Baso # 0.0 K/mm3 (0.0-0.1) 05/19/17 22:02 Seg Neutrophils % 72.5 % (40.0-70.0) H 05/19/17 22:02 Seg Neutrophils # 6.7 K/mm3 (1.8-7.7) 05/19/17 22:02 Sodium 141 mmol/L (137-145) 05/25/17 07:26 Potassium 4.6 mmol/L (3.6-5.0) 05/25/17 07:26 Chloride 101.3 mmol/L (98-107) 05/25/17 07:26 Carbon Dioxide 26 mmol/L (22-30) 05/25/17 07:26 Anion Gap 18 mmol/L 05/25/17 07:26 BUN 24 mg/dL (9-20) H 05/25/17 07:26 Creatinine 1.1 mg/dL (0.8-1.5) 05/25/17 07:26 Estimated GFR > 60 ml/min 05/25/17 07:26 BUN/Creatinine Ratio 21.81 % 05/25/17 07:26 Glucose 90 mg/dL (75-100) 05/25/17 07:26 Calcium 8.9 mg/dL (8.4-10.2) 05/25/17 07:26 Total Bilirubin 0.50 mg/dL (0.1-1.2) 05/21/17 17:54 Direct Bilirubin < 0.2 mg/dL (0-0.2) 05/21/17 17:54 Indirect Bilirubin 0.3 mg/dL 05/21/17 17:54 AST 34 units/L (5-40) 05/21/17 17:54 ALT 14 units/L (7-56) 05/21/17 17:54 Alkaline Phosphatase 77 units/L (35-129) 05/21/17 17:54 Serum Total Protein 6.6 g/dL (6.1-8.1) 05/20/17 13:52 Total Protein 5.6 g/dL (6.3-8.2) L 05/21/17 17:54 Albumin 3.1 g/dL (3.9-5) L 05/21/17 17:54 Albumin/Globulin Ratio 1.2 % 05/21/17 17:54 Ikjnq-4-Auicifwcz 0.3 g/dL (0.2-0.3) 05/20/17 13:52 Siivs-7-Htxwditch 0.7 g/dL (0.5-0.9) 05/20/17 13:52 Beta Globulins 0.4 g/dL (0.2-0.5) 05/20/17 13:52 Gamma Globulins 1.2 g/dL (0.8-1.7) 05/20/17 13:52 Abnorm Protein Band 1 see below 05/20/17 13:52 PEP Interpretation see below H 05/20/17 13:52 Urine Color Yellow (Yellow) 05/20/17 02:45 Urine Turbidity Clear (Clear) 05/20/17 02:45 Urine pH 6.0 (5.0-7.0) 05/20/17 02:45 Ur Specific [place] 1.012 (1.003-1.030) 05/20/17 02:45 Urine Protein 30 mg/dl mg/dL (Negative) 05/20/17 02:45 Urine Glucose (UA) Neg mg/dL (Negative) 05/20/17 02:45 Urine Ketones Neg mg/dL (Negative) 05/20/17 02:45 Urine Blood Neg (Negative) 05/20/17 02:45 Urine Nitrite Neg (Negative) 05/20/17 02:45 Urine Bilirubin Neg (Negative) 05/20/17 02:45 Urine Urobilinogen 2.0 mg/dL (<2.0) 05/20/17 02:45 Ur Leukocyte Esterase Tr (Negative) 05/20/17 02:45 Urine WBC (Auto) 7.0 /HPF (0.0-6.0) H 05/20/17 02:45 Urine RBC (Auto) 1.0 /HPF (0.0-6.0) 05/20/17 02:45 U Epithel Cells (Auto) < 1.0 /HPF (0-13.0) 05/20/17 02:45 Urine Mucus Few /HPF 05/20/17 02:45 Urine Opiates Screen Presumptive negative 05/20/17 02:45 Urine Methadone Screen Presumptive negative 05/20/17 02:45 Ur Barbiturates Screen Presumptive negative 05/20/17 02:45 Valproic Acid 11.3 ug/mL (50-100) L 05/21/17 13:35 Ur Phencyclidine Scrn Presumptive negative 05/20/17 02:45 Ur Amphetamines Screen Presumptive negative 05/20/17 02:45 U Benzodiazepines Scrn Presumptive negative 05/20/17 02:45 Urine Cocaine Screen Presumptive negative 05/20/17 02:45 U Marijuana (THC) Screen Presumptive negative 05/20/17 02:45 Drugs of Abuse Note Disclamer 05/20/17 02:45 Plasma/Serum Alcohol < 0.01 gm% (0-0.07) 05/19/17 22:02 Hepatitis A IgM Ab Non-reactive (NonReactive) 05/20/17 13:52 Hep Bs Antigen Non-reactive (Negative) 05/20/17 13:52 Hep B Core IgM Ab Non-reactive (NonReactive) 05/20/17 13:52 Hepatitis C Antibody Non-reactive (NonReactive) 05/20/17 13:52
--- NOTE | 2017-05-25 14:15 | Progress Note ---
Subjective - Reason for Consult Consult date: 05/25/17 Reason for consult: Psychiatry Follow-up - Chief Complaint Chief complaint: "Hello" 84-year-old male with a past medical history atrial fibrillation and dementia with hallucinations presented to the hospital after a violent outburst at the assisted-living facility. Today patient was calm during assessment. He wouldn't say much when asked questions. Per the staff consultant, patient has been appropriate today. No gestures of SI/HI's and AVH's. He was observed eating his lunch. Mental Status Exam - Vital signs Last Vital Signs Temp 97.6 F 05/25/17 09:36 Pulse 64 05/25/17 09:36 Resp 20 05/25/17 09:36 BP 103/79 05/25/17 09:36 Pulse Ox 97 05/24/17 22:00 - Exam Narrative exam: MSE: Appearance: calm Behavior: poor eye contact Speech: regular rate and tone Mood: "okay" Affect: flat Thought Process: unable to assess Thought Content: no gestures SI/HI's and AVH's Motor Activity: lying bed Cognition: A/Ox 2 Insight: limited Judgment: limited Assessment and Plan Impression: Dementia with behavioral disturbance, likely has underlying mood disorder, which may be longstanding. Today patient is calm during assessment. Patient is out of restraints. Patient is restraint free today. Patient is medically cleared. Recommendation/Plan: Continue Haldol 2.5 mg IM q4 hours PRN for physical agitation and Depakote 500 mg PO BID. Psychiatry signing off this patient. Recommend geriatric psy placement (voluntarily). No geriatric beds currently at [facility]. His son is thinking about returning patient to the assisted living facility. 1. Frequently reorient patient and involve him/her in their care (simple explanations of procedures, tests, medications). 2. Lights on and shades open during daytime hours. 3. Try to avoid unnecessary interruptions to sleep during nighttime hours. 4. Obtain glasses, hearing aids from home if patient uses these at baseline. 5. Avoid medications that may exacerbate delirium (especially narcotics, benzodiazepines, barbiturates, ambien, lunesta, and medications with excessive anticholinergic properties). 6. Haldol 2.5 mg IM Q4hrs for agitation. 7. D/C restraints when indicated.
[2017-05-26 04:44] LABS: Anion Gap 23 mmol/L; Blood Urea Nitrogen 30 mg/dL (9-20); Calcium 9.1 mg/dL (8.4-10.2); Carbon Dioxide 20 mmol/L (22-30); Chloride 98.1 mmol/L (98-107); Glucose 85 mg/dL (75-100); Potassium 4.9 mmol/L (3.6-5.0); Sodium 136 mmol/L (137-145)
[2017-05-26] MEDS: NORMODYNE PO SCH (10:45)
[2017-05-26] MEDS: HEPARIN SUB-Q SCH (10:47)
[2017-05-26] MEDS: NORVASC PO SCH (10:47)
[2017-05-26 10:56] VITALS: BP 109/59
--- NOTE | 2017-05-26 13:18 | Discharge Summary ---
Providers - Providers Date of Admission: 05/20/17 01:17 Date of discharge: 05/26/17 Attending physician: PEDRO BOONE 05/20/17 06:35 Consult to Physician [CONS] Routine Consulting Provider: TAL HUMPHRIES Reason For Exam: SAAD Place consult to:: TAL HUMPHRIES Notified:: Terrance STEPHENS Phone number called:: Was contact made?: Yes If yes, spoke with:: [facility]wering service Time called:: 08:32 05/20/17 09:18 Consult to Mental Health [CONS] Routine Reason For Exam: violent outbursts Place consult to:: Mental Health Notified:: Terrance STEPHENS Phone number called:: [phone]. [phone] Was contact made?: Yes If yes, spoke with:: Holly-mental health Time called:: 10:17 Primary care physician: [facility] [employer] [facility] Hospitalization Condition: Stable Hospital course: Alzheimer's dementia with behavioral disturbances. Continue when necessary Haldol. Psychiatric following. Depakote added to the regimen which helped Acute renal failure. Resolved. Nephrology following. Accelerated Hypertension. Cont. labetalol twice a day. Hyperkalemia. Resolved. Encephalopathy. As above. Disposition. Back to [facility] home Disposition: [id number] ANOTHER TYPE HLTHCARE Time spent for discharge: 35 minutes Core Measure Documentation - Palliative Care Palliative Care/ Comfort Measures: Not Applicable - Core Measures Any of the following diagnoses?: none - VTE Discharge Requirements Deep Vein Thrombosis/Pulmonary Embolism Present on Admission: No Has pt received <5 days of overlap therapy or INR<2.0: No Anticoagulant overlap therapy prescribed at discharge: No Contraindication No Overlap Therapy order at DC: Not Indicated Exam - Constitutional Vitals: Temp Pulse Resp BP Pulse Ox 97.9 F 56 L 18 109/59 100 05/26/17 09:53 05/26/17 10:47 05/26/17 09:53 05/26/17 10:47 05/25/17 22:00 General appearance: Present: no acute distress - EENT Eyes: Present: PERRL - Respiratory Respiratory: bilateral: CTA - Cardiovascular Rhythm: regular Heart Sounds: Present: S1 & S2 Peripheral Pulses: within normal limits - Abdominal General gastrointestinal: Present: soft, non-tender, normal bowel sounds - Musculoskeletal Musculoskeletal: strength equal bilaterally - Neurologic Neurologic: CNII-XII intact, no focal deficits Plan Activity: fall precautions Diet: regular Follow up with: PRIMARY CARE, [Primary Care Provider] - 7 Days
== END 2017-05-26 12:57 | DRG 56 ==
LOC: ED 20:24 → 4A 05-20 01:17 → CC2 05-21 14:18
PROVIDERS: ADMIT Internal Medicine; ATTEND Internal Medicine
PROC: 3E0234Z Introduction of Serum, Toxoid and Vaccine into Muscle, Percutaneous Approach (ICD-10-PCS; principal; 2017-05-20)
DX: G30.8 Other Alzheimer's disease (principal); G93.40 Encephalopathy, unspecified; F02.81 Dementia in other diseases classified elsewhere, unspecified severity, with behavioral disturbance; N39.0 Urinary tract infection, site not specified; N17.9 Acute kidney failure, unspecified; E87.5 Hyperkalemia; E86.0 Dehydration; I10 Essential (primary) hypertension; I48.91 Unspecified atrial fibrillation; R80.9 Proteinuria, unspecified; Z23 Encounter for immunization
CPT/HCPCS: 36415; 80048; 80074; 80164; 80307; 80320; 81001; 84165; 85025; 90732; 93005; 93010; 99285; G0480; J0360; J1630; J1644; J3486; J7030